=== PATIENT | female | born 1990 | race Caucasian/White ===

== ENCOUNTER 2020-11-19 13:21 | Emergency (ER) | payer MEDICAID ==
[2020-11-19 13:29] VITALS: BP 106/69
--- NOTE | 2020-11-19 13:44 | ED Physician Documentation ---
History of Present Illness - Stated complaint Stated Complaint: LT FOOT PAIN - Chief complaint Chief Complaint: Ext Problem - Additonal information Additional information: 30-year-old female presents emergency department for evaluation of acute left ankle and foot pain sustained when she rolled her ankle while running 2 days ago. She has been able to bear only partial weight. She has significant swelling lateral malleolus. No history of previous injury to this extremity. Review of Systems Constitutional: reports: Reviewed and negative Ears: reports: Reviewed and negative Nose: reports: Reviewed and negative Throat: reports: Reviewed and negative Cardiac: reports: Reviewed and negative Respiratory: reports: Reviewed and negative GI: reports: Reviewed and negative : reports: Reviewed and negative Skin: reports: Reviewed and negative Musculoskeletal: reports: Extremity swelling (Left ankle) PD PAST MEDICAL HISTORY - Present Medications Home Medications: Ambulatory Orders Medication Instructions Recorded Confirmed Ibuprofen [Motrin] 600 mg PO Q6H PRN #30 tab 11/19/20 - Allergies Allergies/Adverse Reactions: Allergies Allergy/AdvReac Type Severity Reaction Status Date / Time No Known Drug Allergies Allergy Verified 11/19/20 13:25 PD ED PE EXPANDED - General General: Alert, No acute distress - Extremities Extremities: Left ankle (Swelling and tenderness of the lateral malleolus. Most tenderness just below the malleolus. Normal flexion and extension of the ankle. Full active range of motion. 2+Plus DP pulse), Left foot (Tenderness to the base of the fifth metatarsal. No swelling or ecchymosis. Distal CMST preserved.) Results - Vitals Vitals: Vital Signs - 24 hr 11/19/20 13:25 Temperature 36.5 C Heart Rate 65 Respiratory 16 Rate Blood Pressure 106/69 O2 Saturation 100 Oxygen O2 Source Room air - Rads (name of study) left ankle: Radiology: Final report received (No acute fracture or dislocation) left foot Radiology: Final report received (No acute fracture dislocation. heel spur noted) PD MEDICAL DECISION MAKING - ED course Complexity details: reviewed results, re-evaluated patient, considered differential, d/w patient ED course: 30-year-old female presents the emergency department for evaluation of acute left ankle and foot pain after rolling her ankle when running 2 days ago. She had moderate swelling of the lateral malleolus but is able to bear weight fairly well with the nearly normal gait. There was tenderness in the bottom of the fifth metatarsal. X-ray imaging does not show acute fracture. Suspect sprain and contusion. Patient was given an [place] wrap advised NSAID medication though she is hesitant to take any prescribed medications. Reduced use and rest of this foot was discussed before returning to regular activities. Emergent return precautions discussed Departure - Departure Disposition: 01 Home, Self Care Clinical Impression: Ankle sprain Qualifiers: Encounter type: initial encounter Involved ligament of ankle: unspecified ligament Laterality: left Qualified Code(s): S93.402A - Sprain of unspecified ligament of left ankle, initial encounter Foot contusion Qualifiers: Encounter type: initial encounter Laterality: left Qualified Code(s): S90.32XA - Contusion of left foot, initial encounter Condition: Stable Record reviewed to determine appropriate education?: Yes Instructions: ED Sprain Ankle W X Ray, ED Contusion Lower Extr Ch Prescriptions: Ibuprofen [Motrin] 600 mg PO Q6H PRN #30 tab PRN Reason: Pain Comments: Danny for left foot and ankle pain after rolling her ankle when running 2 days ago. The x-ray of both your foot and ankle do not show any breaks or fractures. This is most likely a sprain. In order to allow this to heal well I do recommend that you avoid excessive exercise or weightbearing activities until you are completely pain-free. With most sprains this can take about 7 to 10 days. I do recommend that you use the [place] wrap when out of bed for the next few days. I have also prescribed some ibuprofen which can be used to treat pain as well as reduce inflammation in the foot. If your symptoms are not markedly better in 7 to 10 days, you have increased swelling or pain please return to the ER for a second look so that we may reimage.
--- NOTE | 2020-11-19 14:13 | XRAY Report ---
PROCEDURE: Foot 3 View LT INDICATIONS: rolled foot; eval for fx. pain base 5th metatarsa TECHNIQUE: 3 views of the foot were acquired. COMPARISON: None FINDINGS: Bones: No fractures or dislocations. No suspicious bony lesions. Well-defined plantar calcaneal en thesophyte is seen. Soft tissues: No tibiotalar joint effusion. Achilles tendon appears normal. IMPRESSION: No left foot fracture or dislocation. Well-defined plantar calcaneal enthesophyte. Reviewed by: Ayaan Salmon MD on 11/19/2020 1:12 PM AKDT Approved by: Ayaan Salmon MD on 11/19/2020 1:12 PM AKDT Station ID: [id number]
--- NOTE | 2020-11-19 14:16 | XRAY Report ---
PROCEDURE: Ankle 2 View LT INDICATIONS: rolled foot; swelling laterally TECHNIQUE: 2 views of the ankle were acquired. COMPARISON: None FINDINGS: Bones: No fractures or dislocations. Ankle mortise is normally aligned. Well-defined plantar calcan eal enthesophyte is seen. No suspicious bony lesions. Soft tissues: No tibiotalar joint effusion. Achilles tendon appears normal. IMPRESSION: No acute ankle fracture or dislocation. Intact ankle mortise. Reviewed by: Ayaan Salmon MD on 11/19/2020 1:14 PM LILY Approved by: Ayaan Salmon MD on 11/19/2020 1:14 PM AKDT Station ID: [id number]
== END 2020-11-19 14:35 | disposition home or self-care (01) ==
LOC: ED 13:21
DX: S93.402A Sprain of unspecified ligament of left ankle, initial encounter (principal); S90.32XA Contusion of left foot, initial encounter; X50.1XXA Overexertion from prolonged static or awkward postures, initial encounter; Y93.02 Activity, running; M77.32 Calcaneal spur, left foot
CPT/HCPCS: 99283